=== PATIENT | female | born 1990 | race Two or more races ===

== ENCOUNTER 2021-06-28 07:45 | Outpatient (CLI) | payer OTHER | END 2021-06-28 09:15 | disposition home or self-care (01) | LOC: PRENATAL 07:45 | PROVIDERS: ATTEND Obstetrics & Gynecology Maternal & Fetal Medicine | DX: O35.0XX1 Maternal care for (suspected) central nervous system malformation in fetus, fetus 1 (principal); O35.3XX1 Maternal care for (suspected) damage to fetus from viral disease in mother, fetus 1; O98.513 Other viral diseases complicating pregnancy, third trimester; O24.410 Gestational diabetes mellitus in pregnancy, diet controlled; O99.213 Obesity complicating pregnancy, third trimester; Z36.89 Encounter for other specified antenatal screening; Z3A.36 36 weeks gestation of pregnancy ==

== ENCOUNTER 2021-07-18 05:45 | Inpatient (IN) | payer OTHER ==
[~2021-07-18] VITALS: Ht 157.5 cm; Wt 90.7 kg
[2021-07-18] MEDS ORDERED: PRENATAL TABLE1 EAC1 PO (09:07)
[2021-07-20] MEDS ORDERED: NAPR500T14 PO (05:47)
== END 2021-07-20 12:34 | disposition home or self-care (01) | DRG 807 ==
LOC: OB/GYN 05:45 → LDR 05:45 → OB/GYN 19:23
PROVIDERS: ADMIT Student in an Organized Health Care Education/Training Program; ATTEND Student in an Organized Health Care Education/Training Program
PROC: 10E0XZZ Delivery of Products of Conception, External Approach (ICD-10-PCS; principal; 2021-07-18)
PROC: 0KQM0ZZ Repair Perineum Muscle, Open Approach (ICD-10-PCS; 2021-07-18)
PROC: 10907ZC Drainage of Amniotic Fluid, Therapeutic from Products of Conception, Via Natural or Artificial Opening (ICD-10-PCS; 2021-07-18)
PROC: 3E033VJ Introduction of Other Hormone into Peripheral Vein, Percutaneous Approach (ICD-10-PCS; 2021-07-18)
PROC: 4A1HXFZ Monitoring of Products of Conception, Cardiac Rhythm, External Approach (ICD-10-PCS; 2021-07-18)
DX: O70.1 Second degree perineal laceration during delivery (principal); Z37.0 Single live birth; O24.420 Gestational diabetes mellitus in childbirth, diet controlled; Z3A.38 38 weeks gestation of pregnancy